=== PATIENT | male | born 1955 | race Caucasian/White ===

== ENCOUNTER → 2022-07-20 11:21 | Outpatient (BNVA) | payer BC, MEDICARE, SELFPAY | PROVIDERS: PCP Family Medicine; Visit Provider Family Medicine | DX: D22.9 Melanocytic nevi, unspecified (principal); N28.1 Cyst of kidney, acquired; Z12.5 Encounter for screening for malignant neoplasm of prostate; B00.1 Herpesviral vesicular dermatitis | CPT/HCPCS: 80053; 80061; 84153; 85025 ==

== ENCOUNTER → 2024-03-11 16:11 | Outpatient (BNVA) | payer OTHER, MEDICARE, SELFPAY | PROVIDERS: PCP Family Medicine; Visit Provider Family Medicine | DX: R10.13 Epigastric pain (principal); N28.1 Cyst of kidney, acquired; Z12.5 Encounter for screening for malignant neoplasm of prostate; R79.89 Other specified abnormal findings of blood chemistry; E83.42 Hypomagnesemia; E55.9 Vitamin D deficiency, unspecified; K21.9 Gastro-esophageal reflux disease without esophagitis | CPT/HCPCS: 80053; 80061; 82306; 82607; 83690; 83735; 84443; 85025; G0103 ==

== ENCOUNTER 2024-07-21 17:00 | Outpatient (CLI) | payer MEDICARE, BC, SELFPAY ==
--- NOTE | 2024-07-21 17:08 | USR_ITS ---
PROCEDURE INFORMATION: Exam: US Retroperitoneal, Complete, Kidneys and Bladder Exam date and time: 07/21/2024 5:13 PM Age: 69 years old Clinical indication: Condition or disease; Kidney or ureter condition; Cyst of kidney; Additional info: Renal cyst. No history of recent trauma or surgery is provided. TECHNIQUE: Imaging protocol: Real-time ultrasound of the retroperitoneum with image documentation. Complete exam focused on the bilateral kidneys and urinary bladder. 73image(s) are provided. Other technique: Grayscale, color images are provided to evaluate for stability or interval change. COMPARISON: No relevant prior studies are currently available. FINDINGS: Right kidney: The right kidney measures 11.6 x 5.3 x 4.3 cm. No echogenic obstructive calculus or hydronephrosis is appreciated. No free or perinephric fluid is appreciated. The right renal cortical thickness is around 1.1 cm. The parenchymal echotexture appears to be within normal. Left kidney: The left kidney measures 12.3 x 6.3 x 5.3 cm. No echogenic obstructive calculus or hydronephrosis is appreciated. No free or perinephric fluid is appreciated. The left renal cortical thickness is around 1.1 cm with borderline echogenicity appearance overall. There is a cystic structure demonstrated about the left inferior renal pole which measures around 1.8 x 1.5 x 1.4 cm. This appears anechoic albeit slightly complex as there appears to be some septation, debris as well as some subtle echogenicity about the wall margin. Some minimal calcification cannot be excluded. Urinary bladder: The bladder is incompletely fluid-filled for evaluation which may exaggerate the wall thickness along with subtle undulation. Consider urinalysis. Prostate: The reported prostate measures around 6 x 4.4 x 5.1 cm with some overall parenchymal heterogeneity. Liver: There appears to be some included slightly heterogeneous, increased echotexture of the liver. No significant free fluid collections are currently appreciated. There is some bowel-gas, penetration artifact. Aorta: The visualized aorta measures around 2 cm. US/US renal BI* [id number] IMPRESSION: 1. There is a complex cyst demonstrated of the left kidney. Consider dedicated MRI of the kidneys for further evaluation. 2. There appears to be subtle increased echotexture of the liver. This can be seen with processes including steatosis as well as chronic hepatic changes. Consider hepatobiliary laboratory profile studies. 3. There appears to be heterogeneous enlargement of the described prostate gland. Consider PSA.
== END 2024-07-21 17:05 | disposition home or self-care (01) ==
PROVIDERS: PCP Family Medicine; Visit Provider Family Medicine
DX: N28.1 Cyst of kidney, acquired (principal)
CPT/HCPCS: 76770

== ENCOUNTER 2024-08-25 15:01 | Outpatient (CLI) | payer MEDICARE, BC, SELFPAY ==
--- NOTE | 2024-08-25 15:15 | MR_ITS ---
WS: [id number] MRI ABDOMEN WITH AND WITHOUT CONTRAST. COMPARISON: Renal ultrasound 07/21/2024 Multiplanar, multisequence imaging is performed with and without contrast. MultiHance 18 mL. LEFT kidney: Normal size at 10.9 cm in length. There is no hydronephrosis or cortical thinning. T2 hy perintense and T1 hypointense mass in the lower pole cortex measures 8 x 12 x 12 mm. There is no enha ncement. This corresponds to the complex cyst seen on recent ultrasound. This is a benign cyst. No ad ditional cysts or solid mass in the LEFT kidney. RIGHT kidney: Normal size at 10.6 cm in length. No hydronephrosis or mass. No cortical thinning. Liver and spleen are normal size. There is mild diffuse hepatic steatosis. No intrahepatic bile duct dilatation. No hepatic mass. Normal gallbladder. Normal pancreas. No pancreatic duct dilatation. Norm al abdominal aorta. Lung bases are clear. No pleural effusions. No ascites. Visualized GI tract is normal. MR/MR abdomen wo/w con* [id number] IMPRESSION: 1. Simple cyst lower pole LEFT kidney measures 8 x 12 x 12 mm. This correspond s to the complex cyst described on recent ultrasound. No solid mass. 2. Mild diffuse hepatic steatosis. 3. Normal gallbladder.
[2024-08-25] MEDS: gadobenate dimeglumine 20 mL vial 18 ML IV (16:02)
== END 2024-08-25 15:02 | disposition home or self-care (01) ==
LOC: RAD 15:02
PROVIDERS: PCP Family Medicine; Visit Provider Family Medicine
DX: N28.1 Cyst of kidney, acquired (principal)
CPT/HCPCS: 74183

== ENCOUNTER → 2024-10-07 15:14 | Outpatient (BNVA) | payer MEDICARE, BC, SELFPAY | PROVIDERS: PCP Family Medicine; Visit Provider Nurse Practitioner Family | DX: D22.5 Melanocytic nevi of trunk (principal); L81.4 Other melanin hyperpigmentation; L82.1 Other seborrheic keratosis; L82.0 Inflamed seborrheic keratosis; R20.8 Other disturbances of skin sensation; Z78.9 Other specified health status | CPT/HCPCS: 17110; 99213 ==

== ENCOUNTER 2024-11-13 03:37 | Emergency (ER) | payer BC, MEDICARE, SELFPAY ==
[2024-11-13 03:42] VITALS: BP 133/87; PULSE 74; RESP 18; TEMP 36.4; O2SAT 94; BMI 25.5
--- NOTE | 2024-11-13 03:47 | CTR_ITS ---
PROCEDURE INFORMATION: Exam: CT Head Without Contrast Exam date and time: 11/13/2024 3:56 AM Age: 69 years old Clinical indication: Injury or trauma; Fall; Blunt trauma (contusions or hematomas); Additional info: Fall, positive loc, posterior scalp laceration TECHNIQUE: Imaging protocol: Computed tomography of the head without contrast. Radiation optimization: All CT scans at this facility use at least one of these dose optimization techniques: automated exposure control; mA and/or kV adjustment per patient size (includes targeted exams where dose is matched to clinical indication); or iterative reconstruction. COMPARISON: No relevant prior studies available. RADIATION DOSE METRICS: Total DLP (mGy-cm): 1177.48 FINDINGS: Brain: There is no mass effect, midline shift, acute hemorrhage, extra-axial fluid collection or acute lobar infarct. Patchy hemispheric white matter hypodensity likely represents chronic microvascular ischemic change. Cerebral ventricles: No ventriculomegaly. Paranasal sinuses: Mucosal thickening is noted within frontal recesses, ethmoid air cells, maxillary antra and right sphenoid sinus. Mastoid air cells: Visualized mastoid air cells are well aerated. Bones: Unremarkable. No acute fracture. Soft tissues: Unremarkable. CT/CT head wo con* [id number] IMPRESSION: No acute intracranial process.
--- NOTE | 2024-11-13 03:48 | W.ED.FALL ---
HPI - Fall General: Chief Complaint: Head Injury Stated Complaint: Fell Head Laceration Time Seen by Provider: 11/13/24 03:40 History of Present Illness: Patient presents to the ER after falling down in his kitchen and hitting the island on the back of his head. Patient said he was feeling little nauseous and we got up to get him to medicine the next and you know he was down on the floor. There was positive loss consciousness. Patient is not on any anticoagulation. Patient did have the emesis. gave him Zofran prior to arrival patient is feeling better now. But has laceration posterior scalp region. Related Data Allergies Allergy/AdvReac Type Severity Reaction Status Date / Time No Known Allergies Allergy Verified 11/13/24 03:47 Review of Systems General: Reports: 10 or more systems reviewed and unremarkable except in HPI and below and ROS unobtainable due to endotracheal tube PFSH ED PFSH: Family History Mother Cancer, Onset Age: 46 ovarian Father Cancer bladder cancer Social History Smoking and tobacco/nicotine status: never used tobacco/nicotine Alcohol intake: current Alcohol intake frequency: few times a month Substance/Drug Use: never Adopted: No Caregiver/support person: No Lives independently: No Household members: spouse Housing: House Marital status: Number of children: 2 Number of grandchildren: 8 Highest education level completed: Some College, No Degree service: No Current occupational status: retired Pets and animals: No Sexually active: Yes Do you think of yourself as: Straight/Heterosexual Current gender identity: Male Special vicente needs: No Agree to transfusion: Yes Physical Exam Const: COMMON NORMALS: no acute distress, average body habitus, patient oriented x3, no limitations, healthy appearing, alert and well nourished HENMT: COMMON NORMALS: normocephalic, hearing grossly normal bilaterally, external ears normal, Normal external nose present, moist oral mucous membranes and oropharynx normal; head/scalp not atraumatic (Linear laceration posterior occipital region bleeding controlled) HEAD & SCALP: normocephalic; not atraumatic (Linear laceration posterior occipital region bleeding controlled) NOSE: Normal external nose present EXTERNAL EAR: Yes external ears normal Eye: COMMON NORMALS: Equal, round and reactive pupils present, EOMs intact bilaterally, conjunctivae normal and no scleral icterus CONJUNCTIVA: Yes conjunctivae normal PUPIL: Yes Equal, round and reactive pupils present Neck/C-Spine: COMMON NORMALS: full ROM, no lymphadenopathy, supple, no meningeal signs, no JVD and Thyroid normal THYROID: Thyroid normal Chest: COMMONS NORMALS: normal inspection of the chest and normal palpation of entire chest wall Resp: COMMON NORMALS: normal respiratory effort, No retractions, No use of accessory muscles and clear to auscultation bilaterally AUSCULTATION: clear to auscultation bilaterally Cardio: COMMON NORMALS: no JVD, regular rate, regular rhythm, S1 normal heart sound present, S2 normal heart sound present, No gallops present (Cardio), No clicks present (Cardio), No murmurs present (Cardio) and No rub (Cardio) RATE: regular rate RHYTHM: regular rhythm HEART SOUNDS: S1 normal heart sound present and S2 normal heart sound present GI: COMMON NORMALS: Normal to inspection, nondistended, normoactive bowel sounds present, Soft to palpation, non-tender, No hepatosplenomegaly present and no masses PALPATION: Yes Soft to palpation and Yes No hepatosplenomegaly present Neuro: COMMON NORMALS: patient oriented x3 SENSORIUM/ORIENTATION: Yes alert MENINGEAL SIGNS: Yes no meningeal signs Procedures Laceration Laceration 1: Site: scalp Size (cm): 4 Description: linear and clean Depth: simple, single layer Pre-repair: wound explored and deep structures intact Skin layer closed with: other (Jerel) Size (cm): other (Jerel) Number of sutures: 5 Course Vital Signs: Vital signs: Vital Signs Temperature 97.5 F L 11/13/24 03:42 Pulse Rate 80 11/13/24 04:29 Respiratory Rate 18 11/13/24 03:42 Blood Pressure 133/87 11/13/24 04:29 Pulse Oximetry 97 11/13/24 04:29 Oxygen Delivery Me thod Room Air 11/13/24 03:42 MDM - Fall Medical Decision Making Head CT is read office no acute bleed, 5 jerel was placed in the posterior scalp black with no complications. Patient was updated with a Tdap shot. Patient be discharged home. Medical Records I reviewed the patient's medical records. Lab Data I reviewed the patient's lab results. All radiology interpretation(s) finalized by discharge Discharge Plan Discharge Patient Disposition: Home Clinical Impression: Laceration of scalp, Fall Condition: Stable Discharge Orders: Discharge ED (Routine); Ordered 11/13/24 Ordered By: Jeff Bailey Referrals: Gt Norris DO [Primary Care Provider] - 1 week Patient Instructions: Scalp Laceration Activity Restrictions/Additional Instructions: Your laceration was closed with approximately 5 jerel. Please try to keep your laceration clean and dry. No soaking of the wound. You may shower and wash her hair with soap and water gently and pat it dry. Please follow-up with your family practitioner within the next 5 to 7 days for reevaluation and probable suture removal. 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
[2024-11-13] MEDS: ondansetron hcl ODT 4 mg Tab PO (04:28)
[2024-11-13 04:29] VITALS: BP 133/87; PULSE 80; O2SAT 97
[2024-11-13] MEDS: tetanus-dipt-pertussis 0.5 mL SDV IM (04:32)
[2024-11-13 04:38] VITALS: BP 133/87; PULSE 82; O2SAT 93
[2024-11-13 05:14] VITALS: BP 119/78; PULSE 81; RESP 18; O2SAT 92
== END 2024-11-13 05:20 | disposition home or self-care (01) ==
PROVIDERS: Emergency Provider Emergency Medicine; PCP Family Medicine
DX: S01.01XA Laceration without foreign body of scalp, initial encounter (principal); W19.XXXA Unspecified fall, initial encounter
CPT/HCPCS: 12002; 70450; 90471; 90715; 99284; Q0162